=== PATIENT | female | born 1975 | race African-American/Black ===

== ENCOUNTER → 2016-09-27 | Outpatient (CLI) | payer OTHER ==
[~2016-09-27] MED LIST: FIORICET 50-321 EACH PO; NO MEDICATIONS; PEPCID AC20 M2 PO; VOLTAREN75 MG PO
--- NOTE | ~2016-09-27 | CR170 ---
[facility]. [facility] A Service of [facility] & [facility] RADIOLOGY TEXT RESULTS PATIENT: URSZULA IZAGUIRRE LOCATION: [facility] : 75 UNIT #: [id number] AGE: [address]: Raoul Laguna MD SEX: F ORDER DR: [id number] [place] [id number] O MR#: [id number] Acc #: [id number] NAME: URSZULA IZAGUIRRE : 1975 SEX: F STUDY DATE/TIME: 09/27/2016 18:21 UNIT: [facility] ROOM: STUDY DESCRIPTION: CR Knee 2 Views Rt Attending Physician: Raoul Laguna M.D. Referring Physician: Raoul Laguna M.D. Ordering Physician: Raoul Laguna M.D. Primary Care Physician: Raoul Laguna M.D. MEDICAL IMAGING REPORT This report is preliminary unless electronic signature is present. EXAM Right knee, 09/27/2016 HISTORY 40-year-old female with right knee pain and swelling since August 2016. COMPARISON None FINDINGS Two views of the right knee demonstrate no acute fracture or dislocation. No joint effusion. Joint spaces are adequately maintained. Soft tissues are unremarkable. IMPRESSION Unremarkable right knee. Dictated by... Efren Lennon M.D. THIS IS AN ELECTRONICALLY VERIFIED REPORT Efren Lennon M.D. at 09/28/2016 3:24 PM Nurys TD: 09/28/2016 08:32 JOB #: [id number] MEDICAL IMAGING REPORT Page 1 of 1
== END | disposition home or self-care (01) ==
LOC: SRAD 18:14
DX: M25.561 Pain in right knee (principal)
CPT/HCPCS: 73560